=== PATIENT | female | born 1995 | race Caucasian/White ===

== ENCOUNTER → 2025-02-10 16:26 | Outpatient (CLI) | payer OTHER, SELFPAY ==
[2025-02-10 17:18] LABS: Add Manual Diff / Slide Review NO; Basophils Absolute Auto 0 /uL (0-100); Basophils Percent Auto 0.1 % (0-2); Eosinophils Absolute Auto 300 /uL (0-450); Eosinophils Percent Auto 3.5 % (2-4); Hematocrit 37.2 % (36-46); Hemoglobin 12.7 g/dL (12.0-16.0); Lymphocytes Absolute Auto 1500 /uL (1100-4500); Lymphocytes Percent Auto 18.3 % (25-40); Mean Corpuscular Hemoglobin 31.4 PG (26-34); Mean Corpuscular Volume 92.2 fL (80-100); Monocytes Absolute Auto 700 /uL (0-900); Monocytes Percent Auto 8.2 % (3-14); Neutrophils Absolute Auto 5800 /uL (1500-7000); Neutrophils Percent Auto 69.9 % (50-75); Platelet Count 227 X10^3/uL (150-400); Red Blood Cell Count 4.03 X10^6/uL (4.0-5.2); Red Cell Distribution Width 14.5 % (11.6-14.8); White Blood Cell Count 8.3 X10^3/uL (4.5-11.0)
[2025-02-10 17:21] LABS: Appearance Urine UA CLEAR; Bilirubin Urine UA NEGATIVE (NEGATIVE); Color Urine UA YELLOW; Glucose Urine UA NEGATIVE (Negative); Ketones Urine UA NEGATIVE (NEGATIVE); Leukocyte Esterase Urine UA TRACE (NEGATIVE); Nitrite Urine UA NEGATIVE (Negative); Occult Blood Urine UA NEGATIVE (Negative); Protein Urine UA NEGATIVE (Negative); Urobilinogen Urine UA 0.2 E.U./dL (0.2)
[2025-02-10 17:22] LABS: pH Urine UA 5.5 (4.5-8.0)
[2025-02-10 17:30] LABS: Bacteria Urine None Seen; RBC Urine None Seen (0-5/HPF); Squamous Epithelial Cell Urine 0-1 /HPF (0-5/HPF); Urine Volume 10mL (spun); WBC Urine 1-5/HPF (0-5/HPF)
[2025-02-11 15:52] LABS: Hepatitis B Surface Antigen NEGATIVE s/c (NEGATIVE); Rubella Antibody IgG 4.6 IU/mL (>15)
[2025-02-11 16:13] LABS: HIV 1 & 2 Ab/Ag 4th Gen Combo NEGATIVE (NEGATIVE); Hep C Virus Ab w/Reflex Quant NEGATIVE s/c (NEGATIVE)
== END ==
LOC: LAB 16:27
PROVIDERS: PCP Family Medicine; Referring Provider Family Medicine; Visit Provider Family Medicine
DX: Z34.00 Encounter for supervision of normal first pregnancy, unspecified trimester (principal)
CPT/HCPCS: 36415; 80055; 81003; 81015; 86787; 86803; 86850; 86900; 86901; 87086; 87389

== ENCOUNTER → 2025-04-19 07:29 | Outpatient (CLI) | payer OTHER, SELFPAY ==
--- NOTE | 2025-04-19 07:30 | DI.US.S_ITS ---
PROCEDURE: US OB >= 14 WEEKS FETUS INDICATIONS: anatomy OUTSIDE/PRIOR DATING DATA: Last menstrual period (LMP): 11/21/24. LMP-based estimated date of delivery (DARLENE): 08/28/25. First dating scan (date and location): 01/20/25. Estimated date of delivery (DARLENE) from first dating scan: 08/31/25. The calculations are made using the working DARLENE of 08/28/25. TECHNIQUE: Real-time scanning was performed of the fetus, with image documentation and biometric measurements. Endovaginal scanning: No COMPARISON: None. FINDINGS: General: A single living intrauterine gestation is present. Presentation: Vertex. Placenta: Placental position is anterior , without previa. Amniotic fluid index: 15.0 cm, normal range is 5-24 cm. Single deepest vertical pocket is 4.7 cm. heart rate: 143 beats per minute. Maternal cervical canal: Closed and 3.4 cm long. Normal lower limit is 2.5 cm. biometrics: Biparietal diameter: 5.4 cm, 22 weeks three days Head circumference: 18.9 cm, 21 weeks one day Abdominal circumference: 16.3 cm, 21 weeks two days Femur length: 3.7 cm, 21 weeks four days Clinically estimated gestational age: 21 weeks two days Composite gestational age from present scan: 21 weeks four days Estimated weight and percentile: 427 g, 55th percentile Anatomic survey: Neuro: Ventricles are non-dilated at less than 10 mm. Cisterna magna is normal at 3-11 mm. Cerebellum is normal in size and morphology. Nuchal skin fold: Normal at less than 6 mm between 14-21 weeks gestational age. Face: Nose and lips, facial profile are normal. Spine: No evidence for spina bifida. Heart: 4-chambered heart is present, with normal ventricular outflow tracts. Diaphragm: Diaphragm is intact. Stomach: Left-sided stomach is present. Kidneys: No hydronephrosis. Normal is less than 5 mm in 2nd trimester, less than 7 mm in 3rd trimester. Cord: 3-vessel cord insertion site was not well seen due to position. Bladder: Normal in size. Extremities: All 4 extremities identified. IMPRESSION: Single living intrauterine with estimated weight at the 55th percentile. Symmetric and appropriate growth, and normal anatomy. umbilical cord insertion was not well seen and short-term follow-up is recommended Anterior placenta. Closed cervix and normal amniotic fluid volume. We strive to produce accurate, complete, and clear reports of imaging services. To assist us in improving patient care, this report was composed using standard report templates and voice recognition software. Therefore, it may contain abnormal punctuation, insertions and/or omissions. Occasional wrong-word or sound-alike substitutions may occur. Though we review the report and make efforts to correct it, we do recommend that the report be read carefully in proper context to recognize any text inaccuracies. Dictated by: Lizbeth Leblanc M.D. on 04/19/2025 at 15:32 Approved by: Lizbeth Leblanc M.D. on 04/19/2025 at 15:57
== END ==
PROVIDERS: PCP Family Medicine; Referring Provider Family Medicine; Visit Provider Family Medicine
DX: Z34.02 Encounter for supervision of normal first pregnancy, second trimester (principal); Z3A.21 21 weeks gestation of pregnancy
CPT/HCPCS: 76811

== ENCOUNTER → 2025-05-05 15:16 | Outpatient (CLI) | payer OTHER, SELFPAY ==
--- NOTE | 2025-05-05 15:19 | DI.US.S_ITS ---
PROCEDURE: US OB FOLLOW UP INDICATIONS: follow up, umbilical cord placement on placenta OUTSIDE/PRIOR DATING DATA: Last menstrual period (LMP): November 21, 2024. LMP-based estimated date of delivery (DARLENE): August 28, 2025. First dating scan (date and location): January 20, 2025. Estimated date of delivery (DARLENE) from first dating scan: August 31, 2025. The calculations are made using the clinical DARLENE of August 28, 2025. TECHNIQUE: Real-time scanning was performed of the fetus, with image documentation. Endovaginal scanning: Not performed COMPARISON: [facility], OB >= 14 WEEKS FETUS, 04/19/2025, 7:49. FINDINGS: A single living intrauterine gestation is present. Presentation: Vertex. Placenta: Placental position is anterior, without previa. Amniotic fluid index: 14.6 cm, normal range is 5-24 cm. Single deepest vertical pocket is 4.3 cm. heart rate: 143 beats per minute. Maternal cervical canal: 4.2 cm long. Normal lower limit is 2.5 cm. Clinically estimated gestational age: 23 weeks and 4 days Evaluation of the cord insertion on the placenta is normal. Right renal pelvis AP dimension measures 3.3 mm. Left renal pelvis AP dimension measures approximately 4.1 mm. No leydi hydronephrosis. IMPRESSION: Single living intrauterine gestation with estimated gestational age of approximately 23 weeks and 4 days. Normal appearance of cord insertion. Borderline prominence of the left renal pelvis without leydi hydronephrosis. Recommend follow-up ultrasound at 32 weeks gestational age. Dictated by: Rikki Vallejo M.D. on 05/05/2025 at 17:47 Approved by: Rikki Vallejo M.D. on 05/05/2025 at 17:53
== END ==
PROVIDERS: PCP Family Medicine; Referring Provider Family Medicine; Visit Provider Family Medicine
DX: Z34.00 Encounter for supervision of normal first pregnancy, unspecified trimester (principal); Z3A.23 23 weeks gestation of pregnancy
CPT/HCPCS: 76816

== ENCOUNTER → 2025-07-05 16:39 | Outpatient (CLI) | payer OTHER, SELFPAY ==
--- NOTE | 2025-07-05 16:40 | DI.US.S_ITS ---
PROCEDURE: US OB FOLLOW UP INDICATIONS: kidney f/u OUTSIDE/PRIOR DATING DATA: Last menstrual period (LMP): 11/21/2024 LMP-based estimated date of delivery (DARLENE): 08/28/2025 First dating scan (date and location): 01/20/2025. Estimated date of delivery (DARLENE) from first dating scan: 08/31/2025 The calculations are made using the working DARLENE of 08/28/2025. TECHNIQUE: Real-time scanning was performed of the fetus, with image documentation. Endovaginal scanning: Not performed COMPARISON: [facility], OB FOLLOW UP, 05/05/2025, 15:34. FINDINGS: A single living intrauterine gestation is present. Presentation: Vertex Placenta: Placental position is anterior, without previa. Amniotic fluid index: 20.1 cm, normal range is 5-24 cm. Single deepest vertical pocket is 6.9 cm. heart rate: 145 beats per minute. Maternal cervical canal: Closed and measures 2.7 cm long. Normal lower limit is 2.5 cm. Estimated gestational age from initial scan: 32 weeks, 2 days. Bilateral kidneys are visualized and are within normal limits. IMPRESSION: 1. Single live intrauterine gestation with fetus in vertex presentation. heart rate is 145 beats per minute. Normal NEL at 20.1 cm. 2. Cervix is closed and measures 2.7 cm in length. 3. Bilateral kidneys are seen on the current study and are within normal limits. No hydronephrosis. Dictated by: Christiano Lima M.D. on 07/06/2025 at 12:24 Approved by: Christiano Lima M.D. on 07/06/2025 at 12:26
== END ==
LOC: US 16:40
PROVIDERS: PCP Family Medicine; Referring Provider Family Medicine; Visit Provider Family Medicine
DX: O28.3 Abnormal ultrasonic finding on antenatal screening of mother (principal)
CPT/HCPCS: 76816

== ENCOUNTER → 2025-08-04 12:06 | Outpatient (CLI) | payer OTHER, SELFPAY ==
[2025-08-05 08:20] LABS: Strep Grp B PCR POS for Grp B Strep
== END ==
PROVIDERS: PCP Family Medicine; Visit Provider Family Medicine
DX: Z34.00 Encounter for supervision of normal first pregnancy, unspecified trimester (principal)
CPT/HCPCS: 87653

== ENCOUNTER 2025-08-23 07:18 | Inpatient (IN) | payer OTHER, SELFPAY ==
[2025-08-23 08:02] LABS: Add Manual Diff / Slide Review NO; Hematocrit 38.2 % (36-46); Hemoglobin 13.0 g/dL (12.0-16.0); Lymphocytes Absolute Auto 1900 /uL (1100-4500); Mean Corpuscular HGB Conc 34.0 % (30-36); Mean Corpuscular Hemoglobin 31.2 PG (26-34); Mean Corpuscular Volume 91.6 fL (80-100); Platelet Count 209 X10^3/uL (150-400)
[2025-08-23] MEDS: LACTATED RINGERS 1,000 ML 100 ML IV ×2 (08:07→12:37)
[2025-08-23] MEDS: AMPICILLIN 2,000 MG in SODIUM CHLORIDE 0.9% 100 ML 200 MG IV (08:07)
--- NOTE | 2025-08-23 08:41 | PM.OBHP.IH.1 ---
OB HPI Date/Time Date of admission: 08/23/25 Date Patient Seen: 08/23/25 Time Patient Seen: 07:45 History of Present Condition Chief complaint: LABOR DARLENE Calculator Estimated Delivery Date Method Current WG Current Estimate 08/28/25 LMP (Certain) 39w 2d Other Estimates 08/31/25 Ultrasound #1 38w 6d Estimated Gestational Age (weeks): 39w2d : 1 Para: 0 Narrative: Pt is a 30yo at 39w2d here with contractions. Pt reports contractions starting around 3am, increasing in frequency and intensity since then. Vaginal bleeding earlier in the morning but none recently. No LOF. She is feeling her baby move regularly. Her was complicated by borderline left hydronephrosis, resolved on repeat u/s. care: good care, initiated at week # (8) and pounds weight gain (43) Dating criteria OB: LMP confirmed by 1st trimester US Ultrasounds: normal 1st trimester US and normal mid trimester US Abnormal ultrasound findings: Borderline hydronephrosis left side, resolved on repeat u/s Obstetrical complications: none Medical complications OB: none Preadmission Labs Last OB Lab Results: Blood Type A Positive Today, 07:49 Antibody Screen Negative Today, 07:49 Hct, (36-46) 38.2 % Today, 07:49 Hgb, (12.0-16.0) 13.0 g/dL Today, 07:49 Hep Bs Antigen, (NEGATIVE) Negative s/c 02/10/25, 16:39 Hepatitis C Antibody, (NEGATIVE) Negative s/c 02/10/25, 16:39 Rubella Antibody, (>15) 4.6 IU/mL L 02/10/25, 16:39 VZV IgG Antibody, (Non Reactive) Reactive 02/10/25, 16:39 Glucose 1 Hr 50 gm, (76-139) 114 mg/dL 05/24/25, 11:09 Group B Strep (PCR) Pos for grp b strep H 08/04/25, 12:08 -: Urine: negative Genetic Screens: Cell-free DNA: Normal External Labs -: Urine: negative Evaluation Evaluation Baseline heart rate: 140 Variability: Moderate (6-25) monitor accelerations: Present Monitor Decelerations: Absent Contraction Frequency (minutes): 3 Uterine Contraction Intensity: Strong/Firm Status: Category l Dilation (cm): 7 Effacement (%): 80 station: -2 [facility] Medical History (Updated 12/29/24 @ 12:05 by Apryl Henry RN) Abdominal pain Arm fracture Chicken pox (~2002) Surgical History (Updated 12/29/24 @ 12:04 by Apryl Henry RN) History of removal of skin mole Anesthesia [place] teeth removed (~2015) Family History (Updated 12/29/24 @ 12:08 by Apryl Henry RN) Father Testicular cancer Precancerous skin lesion Grandfather ALS (amyotrophic lateral sclerosis) Grandmother Skin cancer Aunt Breast cancer Social History (Updated 10/19/24 @ 11:44 by Shahla Godinez MD) marital status: number of children: 1 household members: spouse lives independently: Yes caregiver/support person: No housing: house pets and animals: Yes (dog) education level: master's degree (tax and accounting) occupational status: employed (CPA) current occupational exposures/hazards: No special jory needs: No travel history: recent (domestic only) seatbelt use: always helmet use: Yes water heater temp set < 120 deg: Yes working smoke detector in home: Yes fire extinguisher in home: Yes carbon monox detector in home: Yes firearms in home: Yes firearms unloaded and locked: Yes do you feel safe at home: Yes second hand exposure: No alcohol intake: former (occasional glass wine when not or trying) substance use type: does not use during the past year weight has: remained stable well-balanced diet: daily or most days daily servings fruits/ve or more times/day caffeine: Yes (aware of 200mg limit) Type(s) of exercise: walking and aerobic frequency: daily Meds Home Medications and Allergies Home Medications ?Medication ?Instructions ?Recorded ?Confirmed ?Type magnesium carb,citrate,oxide mg PO 12/29/24 08/18/25 History (Magnesium Complex) vitamin-ferrous sulfate tab PO 12/29/24 08/18/25 History 27 mg iron-folic acid 0.8 mg tablet Allergies Allergy/AdvReac Type Severity Reaction Status Date / Time No Known Drug Allergies Allergy Verified 08/23/25 08:29 OB Exam Resp Effort & Inspection: normal respiratory effort Auscultation: clear to auscultation bilaterally Cardio Rate: regular rate Rhythm: regular rhythm Heart Sounds: S1 normal, S2 normal and no murmurs GI Inspection: non-distended Palpation: Yes soft and No tender Presentation: vertex Objective Labs 08/23/25 07:49 Labs: Laboratory Results - last 24 hr 08/23/25 07:49 WBC 11.9 H RBC 4.17 Hgb 13.0 Hct 38.2 MCV 91.6 MCH 31.2 MCHC 34.0 RDW 14.1 Plt Count 209 Neut % (Auto) 76.8 H Lymph % (Auto) 15.5 L Hart % (Auto) 6.5 Eos % (Auto) 0.8 L Baso % (Auto) 0.4 Neut # (Auto) 9200 H Lymph # (Auto) 1900 Hart # (Auto) 800 Eos # (Auto) 100 Baso # (Auto) 0 Assessment and Plan Assessment and Plan Assessment and Plan narrative: 30yo at 39w2d here in active labor. uncomplicated. GBS positive, Rh positive. - Expectant management, anticipate - Epidural for pain control when desired - FHT reassuring - GBS positive, start ampicillin ppx now Time-Based Coding :: [TOTAL MINUTES] spent with patient and on the chart (including review of chart, obtaining history, exam, reviewing outside data, placing orders, documenting exam and treatment plan, and counseling patient) on [DATE].
--- NOTE | 2025-08-23 12:22 | PM.AN.REGBLK ---
[facility] <Rosa Nugent CRNA - Last Filed: 08/23/25 12:49> Pre-procedure Procedure: Continuous Lumbar Epidural for L&D (CSE) Attending OB provider: Shahla Godinez PMH/ROS narrative: 30yo at 39w2d PSH/Anesthesia history narrative: See anesthesa pre-op form Exam narrative: Called to bedside for labor epidural, patient in mild distress (labor pain), see anesthesia pre-op form for exam and ROS. ASA Class: II Labs: Hct 38.2 % (36-46) 08/23/25 07:49 Plt Count 209 X10^3/uL (150-400) 08/23/25 07:49 Medications: Current Medications Generic Name Dose Route Start Last Admin Trade Name Freq PRN Reason Stop Dose Admin Butorphanol Tartrate 0.5 mg 08/23/25 09:03 Butorphanol 1 Mg/Ml Vial IV Q3H PRN Pruritis Calcium Carbonate 1,000 mg 08/23/25 07:49 Calcium Carbonate 500 Mg Tab PO Q2HR PRN Dyspepsia Carboprost Tromethamine 250 mcg 08/23/25 07:49 Carboprost 250 Mcg/Ml Ampul IM Q90M PRN Bleeding Ephedrine Sulfate 10 mg 08/23/25 09:03 Ephedrine 50 Mg/Ml Vial IV Q5M PRN Blood Pressure - Low Oxytocin/Lactated Ringer's 30 unit in 500 mls @ 200 mls/hr 08/23/25 07:49 Oxytocin Premix IV CONT PRN Bleeding Protocol Tranexamic Acid 1,000 mg/ 100 mls @ 600 mls/hr 08/23/25 07:49 Sodium Chloride IV NOW PRN Bleeding Lactated Ringer's 1,000 mls @ 100 mls/hr 08/23/25 08:00 08/23/25 08:07 Lactated Ringers IV 08/23/25 17:59 100 mls/hr CONT MARISABEL Administration FENT 2MCG/ML BUPIV 0.125% EPI 200 mcg in 100 mls @ 8 mls/hr 08/23/25 09:15 Fentanyl/Bupiv/Ns 2mcg/Ml - 0.125% EPIDURAL CONT MARISABEL Protocol Lidocaine HCl 20 ml 08/23/25 07:49 Lidocaine 1% 20 Ml INJ INTRA-OP PRN Post Delivery Methylergonovine Maleate 0.2 mg 08/23/25 07:49 Methylergonovine 0.2 Mg Tablet PO Q6HR PRN Heavy Bleeding Methylergonovine Maleate 0.2 mg 08/23/25 07:49 Methylergonovine 0.2 Mg/Ml Vial IM NOW PRN Bleeding Metoclopramide HCl 10 mg 08/23/25 09:03 Metoclopramide 10 Mg/2 Ml Inj IV Q4H PRN Nausea And Vomiting Mineral Oil 30 ml 08/23/25 07:49 Mineral Oil 30 Ml Udc TOP PRN PRN Version Misoprostol 800 mcg 08/23/25 07:49 Misoprostol 200 Mcg Tablet KS NOW PRN Bleeding Misoprostol 400 mcg 08/23/25 07:49 Misoprostol 200 Mcg Tablet SL NOW PRN Bleeding Nalbuphine HCl 5 mg 08/23/25 09:03 Nalbuphine 20 Mg/Ml Ampul IV Q6H PRN Pruritis Naloxone HCl 0.2 mg 08/23/25 07:49 Naloxone 0.4 Mg/Ml Vial IV Q2MIN PRN Opiate Reversal Naloxone HCl 0.2 mg 08/23/25 09:03 Naloxone 0.4 Mg/Ml Vial IV Q2MIN PRN Opiate Reversal Ondansetron HCl 4 mg 08/23/25 07:49 Ondansetron 4 Mg/2 Ml Inj IV Q4HR PRN Nausea And Vomiting Ondansetron HCl 4 mg 08/23/25 09:03 Ondansetron 4 Mg/2 Ml Inj IV Q6H PRN Nausea And Vomiting Oxytocin 10 unit 08/23/25 07:49 Oxytocin 10 Unit/Ml Vial IM NOW PRN Bleeding Allergies: Allergies Allergy/AdvReac Type Severity Reaction Status Date / Time No Known Drug Allergies Allergy Verified 08/23/25 08:29 Procedure Insertion date: 08/23/25 Insertion time: 10:54 Prep/Local: betadine x3 (Chloraprep) and 1% lidocaine Interspace: L3-L4 Patient position: sitting Needle: 17 gauge Tuohy Loss of resistance with: saline RENO at (cm): 5 Catheter placed at SKIN (cm): 8 Catheter in SPACE (cm): 3 Sensory level: T11 Insertion: Yes CSF, No Blood, No Paresthesia with insertion, No Paresthesia with injection and No Test dose reaction Initial Medications TEST DOSE time: 11:00 TEST DOSE: 1.5% lidocaine with epinephrine 1:200k (mL): 5 BOLUS DOSE time: 10:57 BOLUS DOSE (mL): 0 (0.75ml ) BOLUS DOSE med: 0.25% bupivacaine Infusion INFUSION: 0.125% bupivacaine and with fentanyl 2 mcg/mL Initial rate (mL/hr): 8 (5ml PCEA q15min, 20ml lockout) Post-procedure Anesthesia date START: 08/23/25 Anesthesia time START: 10:44 <Priya Jay DO - Last Filed: 08/23/25 18:11> Infusion Subsequent interventions: 15:48 - Pt has been uncomfortable and RN calling for bolus for half an hour; all anesthesia providers in cases, and I was the first one free. Pt's RLE is numb, LLE moves well and pain primarily on L side. Pt is unable to lay on either side due to increased pain with labor. Discussed with pt and partner the plan to bolus with a quick-acting local anesthetic that would get pt comfortable quickly and wear off, ideally, about the time she is ready to push. Bolused with 5 ml of lido 2% PF. Epidural infusion increased from 8 ml/hr to 12 ml/hr. KR 16:05 - Called pt's RN. Pt is much more comfortable and reports she barely feels her contractions. KR Post-procedure Anesthesia date END: 08/23/25 Anesthesia time END: 16:59 Post-procedure Anesthesia Assessment: Yes CV function: HR/BP stable, Yes Resp function: RR/sat/airway adequate, Yes Post-op hydration adequate, Yes Pain control adequate, Yes Nausea & vomiting absent, Yes Temperature > 36 C, Yes Mental status appropriate and No Anesthesia complications
[2025-08-23] MEDS: AMPICILLIN 1,000 MG in SODIUM CHLORIDE 0.9% 100 ML 200 MG IV (12:37)
--- NOTE | 2025-08-23 13:37 | PM.OBPNLAB ---
Date/Time Date Patient Seen: 08/23/25 Time Patient Seen: 13:20 Pain Control Pain control: epidural Pelvic Exam Dilation (cm): 8 Effacement (%): 90 station: -1 Amniotic membrane status: Ruptured Comments: After informed consent, AROM performed with clear fluid present. Contractions Contraction frequency (min): 5 Status status: Category l Heart Rate Baseline: 140 Monitor Accelerations: Present Monitor Decelerations: Absent Monitor Variability: Moderate Assessment and Plan Comments: 30yo at 39w2d here in active labor. uncomplicated. GBS positive, Rh positive. Due to slow progress, AROM performed with clear fluid present. - Expectant management, anticipate - Epidural in place and working well - FHT reassuring - GBS positive, continue Ampicillin --> already adequate
--- NOTE | 2025-08-23 17:33 | PM.OBPRVD ---
Labor & Delivery Delivery date: 08/23/25 Delivery Time: 16:59 Cervical ripening method: none Induction method: none Delivery augmentation: rupture of membranes Delivery monitor: external FHT and external uterine Route of delivery: Episiotomy description: None L&D Laceration Description: Vaginal - 1st Degree and Labial Quantitative Blood Loss: 100 Anesthesia Type: Epidural Complications: None Narrative: PROCEDURE: at 39w2d presented in active labor and was admitted to Labor and Delivery. The patient progressed through the 1st stage over 14 hours. AROM occured at 13:19 with clear fluid. Pain was controlled with an epidural. The patient progressed through the 2nd stage over 46 minutes and delivered a viable female infant with APGARs 8/9 at 16:59 via without complications. The cord was cut and clamped after it stopped pulsating. The placenta delivered with gentle cord traction, and appeared complete. The perineum and vagina were inspected with small vaginal and bilateral superior labial lacerations repaired with 2-O Chromic for hemostasis. Needle and sponge counts were correct.? The vagina was inspected and no items were left in situ. Yenni was doing well with Catalina, her and her , Pavan, at bedside. PREPROCEDURE DIAGNOSIS: Intrauterine at 39w2d GBS positive RH positive POSTPROCEDURE DIAGNOSIS: Intrauterine at 39w2d, delivered Same as preprocedure Baby 1: Infant gender: Female Presentation: vertex Position: Left Occiput Anterior Placenta delivery description: Spontaneous Cord Vessel Description: 3 Vessels score (1 min): 8 score (5 min): 9 weight: 7 lb 2.64 oz Plan for aftercare: Routine care
[2025-08-23] MEDS: LANOLIN OINT 7 GM 1 APPLIC TOP (18:56)
[2025-08-23] MEDS: DERMOPLAST SPRAY 20% 60 ML 1 SPRAY TOP (18:58)
[2025-08-23] MEDS: IBUPROFEN 600 MG TABLET PO (21:21)
[2025-08-23] MEDS: ACETAMINOPHEN 325 MG TABLET 650 MG PO (21:21)
[2025-08-24] MEDS: IBUPROFEN 600 MG TABLET PO ×3 (03:54→16:09)
[2025-08-24] MEDS: ACETAMINOPHEN 325 MG TABLET 650 MG PO ×3 (03:54→16:09)
[2025-08-24] MEDS: PRENATAL VIT,CALC/IRON/FOLIC 1 TABLET 1 TAB PO (10:00)
[2025-08-24] MEDS: DOCUSATE 100 MG CAPSULE PO (10:00)
--- NOTE | 2025-08-24 13:09 | PM.OBDS.1 ---
Discharge Providers Provider Date of admission: 08/23/25 07:18 Discharge Date: 08/24/25 Primary care physician: Shahla Godinez MD Consults: 08/23/25 07:49 Consult to Anesthesiology Urgent Comment: Consulting Provider: Anesthesiologist Reason for consultation: Epidural 08/23/25 17:55 Consult to [employer] Consultant Routine Comment: Discharge provider: Shahla Godinez MD Summary Hospital Course Date Patient Seen: 08/24/25 Diagnoses: 39w2d gestation GBS positive Rh positive Hospital Course: The pt presented in active labor. She had an epidural for pain control. AROM was performed with clear fluid present. She progressed to complete and had an uncomplicated of a viable girl. A small vaginal laceration and bilateral labial lacerations were repaired. , there were no complications. At the time of discharge she was voiding, ambulating, and passing flatus without difficulty. Her lochia was decreasing appropriately. Her pain was well controlled. She was with good latch. She will f/u in 6 weeks for check. She is undecided regarding contraception. Peripartum Data Infant Delivery Method: Natural Vaginal Laceration Description: Vaginal - 1st Degree and Labial Episiotomy description: None Procedures: Spontaneous vaginal delivery complications: none [place] 1: Gender: Female Disposition of : home Time Spent with Patient Time attestation: Total time spent providing and/or coordinating discharge services: Objective Labs 08/23/25 07:49 Exam Narrative Exam Narrative: Gen: NAD, sitting comfortably in bed, appears well CV: RRR, no murmurs Resp: clear to auscultation bilaterally Abd: soft, appropriately tender, fundus firm and below the umbilicus, nondistended Ext: no edema Discharge Plan Discharge Plan Patient Disposition: Home Discharge orders & Medications Prescriptions: New sennosides [senna] 8.6 mg Tablet 17.2 mg PO BEDTIME PRN (Reason: Constipation) Qty: 30 0RF acetaminophen 325 mg Tablet 650 mg PO Q6H PRN (Reason: Pain, Mild (1-3)) Qty: 30 0RF ibuprofen 600 mg Tablet 600 mg PO Q6H Qty: 30 0RF Continued vit-ferrous sulfat-FA 27 mg iron- 0.8 mg tablet 1 tab PO DAILY Magnesium Complex 300 mg magnesium tablet 325 mg PO DAILY Follow up/Referrals: Shahla Godinez MD [Primary Care Provider, [facility]] Referral Note: Please follow up with Dr. Godinez for a 6 week visit on October 11Saturday @ 1115am. Diet/Activity/Treatments Diet: Diet as Tolerated and Regular Visit Report/Discharge Packet Instructions: DI for Labor and Delivery, Vaginal Stand Alone Forms: Patient Portal/API, Stroke Signs & Symptoms Discharge Data Primary Care Provider: Shahla Godinez
[2025-08-24 17:43] VITALS: BP 113/71; PULSE 77; RESP 16; TEMP 36.5
== END 2025-08-24 17:50 | disposition home or self-care (01) | DRG 807 ==
PROVIDERS: Admitting Provider Family Medicine; PCP Family Medicine; Referring Provider Family Medicine; Visit Provider Family Medicine
DX: O99.824 Streptococcus B carrier state complicating childbirth (principal); Z37.0 Single live birth; Z3A.39 39 weeks gestation of pregnancy; Z67.10 Type A blood, Rh positive; O70.0 First degree perineal laceration during delivery
CPT/HCPCS: 36415; 59050; 85025; 86850; 86900; 86901; G0379; J0290; J7050; J7120

== ENCOUNTER → 2025-09-26 10:01 | Outpatient (CLI) | payer OTHER, SELFPAY ==
[2025-09-26 10:59] LABS: Influenza A - CEPHEID Flu A NEGATIVE (NEGATIVE); Influenza B - CEPHEID Flu B NEGATIVE (NEGATIVE)
[2025-09-26 11:04] LABS: COVID-19 CEPHEID 4-PLEX PCR Negative (Negative)
== END ==
PROVIDERS: PCP Family Medicine; Visit Provider Chiropractor
DX: R39.15 Urgency of urination (principal); J02.9 Acute pharyngitis, unspecified
CPT/HCPCS: 87086; 87637